=== PATIENT | male | born 1970 | race African-American/Black ===

== ENCOUNTER 2018-10-25 19:15 | Emergency (ER) | payer SELFPAY ==
[~2018-10-25] VITALS: Ht 185.4 cm; Wt 76.2 kg
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
[2018-10-25 19:26] VITALS: BP 139/91
[2018-10-25 19:30] VITALS: BP 139/91
--- NOTE | 2018-10-25 19:30 | NUR ---
48M BIBA C/O GENERALIZED WEAKNESS. PT AWAKE AND ALERT. VSS. PT UNWILLING TO ANSWER QUESTIONS. PATIENT WAS FOUND AT [facility]. PER EMS "HE DID NOT WANT TO LEAVE STORE. BUT HE WAS ABLE TO AMBULATE FOR US. HE HASN'T BEEN REALLY ANSWERING MANY OF OUR QUESTIONS."SKIN IS PINK/WARM/DRY; DENIES PAIN: PATIENT POSITIONED FOR COMFORT; HOB ELEVATED; BEDRAILS UP X2; BED DOWN. ER MD MADE AWARE OF PT STATUS.
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
[2018-10-25] MEDS ORDERED: NACL 0.9% 1,000 ML IV ONE (20:05)
--- NOTE | 2018-10-25 20:32 | NUR ---
PT UNWILLING TO COOPERATE WITH MEDICAL CARE AT THIS TIME. DR SIEGEL MADE AWARE.
--- NOTE | 2018-10-25 20:53 | NUR ---
PT DISCONNETED IV FLUIDS. DR SIEGEL MADE AWARE.
--- NOTE | 2018-10-25 21:02 | NUR ---
Patient discharged. Written and verbal after care instructions given and explained. Patient did not verbalize understanding. Ambulatory with steady gait. All questions attempted to be addressed prior to discharge. Pt unwilling to sign discharge paperwork.
== END 2018-10-25 21:02 | disposition home or self-care (01) ==
LOC: MED 19:15
DX: R53.83 Other fatigue (principal); F41.9 Anxiety disorder, unspecified; F32.9 Major depressive disorder, single episode, unspecified; Z60.2 Problems related to living alone
CPT/HCPCS: 82948; 99283; J7030